=== PATIENT | male | born 1985 | race Caucasian/White ===

== ENCOUNTER 2017-11-17 18:13 | Emergency (ER) | payer MEDICAID | END 2017-11-17 18:51 | disposition home or self-care (01) | LOC: E/R 18:13 | DX: H65.02 Acute serous otitis media, left ear (principal) | CPT/HCPCS: 99283; Z7502 ==

== ENCOUNTER 2018-02-23 08:55 | Emergency (ER) | payer SELFPAY, MEDICAID | END 2018-02-23 10:17 | disposition home or self-care (01) | LOC: FTE 08:55 | DX: R51 Headache (principal); R42 Dizziness and giddiness; R40.2412 Glasgow coma scale score 13-15, at arrival to emergency department | CPT/HCPCS: 99282 ==

== ENCOUNTER 2018-05-27 17:58 | Emergency (ER) | payer SELFPAY | END 2018-05-27 19:48 | disposition home or self-care (01) | LOC: FTE 17:58 | DX: S61.452D Open bite of left hand, subsequent encounter (principal); R06.02 Shortness of breath; W54.0XXD Bitten by dog, subsequent encounter; Y92.9 Unspecified place or not applicable | CPT/HCPCS: 71045; 93005; 99284-25 ==

== ENCOUNTER 2018-07-06 00:35 | Emergency (ER) | payer SELFPAY ==
[2018-07-06] MEDS: LORAZEPAM 1 MG TAB PO (01:56)
[2018-07-06] MEDS: ASPIRIN 325 MG TAB PO (01:56)
== END 2018-07-06 03:06 | disposition home or self-care (01) ==
LOC: FTE 00:35
DX: R06.02 Shortness of breath (principal); F41.9 Anxiety disorder, unspecified; F17.210 Nicotine dependence, cigarettes, uncomplicated
CPT/HCPCS: 93005; 99283-25